=== PATIENT | male | born 1940 | race Caucasian/White ===

== ENCOUNTER 2017-11-28 15:04 | Emergency (ER) | payer OTHER ==
[~2017-11-28] VITALS: Ht 180.3 cm; Wt 66.7 kg
[2017-11-28 15:04] VITALS: BP_SYST 119
[2017-11-28] MEDS ORDERED: NACL 0.9% 1,000 ML IV ONE (16:24)
[2017-11-28] MEDS ORDERED: LORazepam 2 MG/ML VIAL (FOR ER USE) IVP ONE (16:30)
[2017-11-28] MEDS ORDERED: POLYETHYLENE GLYCOL 3350, 17 GM/ POWD.PACK PO ONE (16:30)
[2017-11-28] MEDS ORDERED: METOCLOPRAMIDE HCL 10 MG/2 ML VIAL IVP ONE (16:30)
[2017-11-28] MEDS ORDERED: BISACODYL 10 MG/SUPPOSITORY RC ONE (16:30)
[2017-11-28] MEDS ORDERED: BISACODYL 5 MG TABLET.DR (DULCOLAX) PO ONE (16:30)
[2017-11-28 16:59] LABS: BASOPHILS # (AUTO) 0.1 K/uL (0.0-0.2); BASOPHILS % (AUTO) 1.5 % (0.0-2.0); EOSINOPHILS # (AUTO) 0.1 K/uL (0.0-0.4); EOSINOPHILS % (AUTO) 0.6 % (0.0-4.0); HEMATOCRIT 38.2 % (36-54); HEMOGLOBIN 12.9 g/dL (14.0-18.0); LYMPHOCYTES # (AUTO) 1.4 K/uL (1.0-5.5); LYMPHOCYTES % (AUTO) 16.2 % (20.5-51.5); MEAN CORPUSCULAR HEMOGLOBIN 31 pg (27-31); MEAN CORPUSCULAR HGB CONC 34 % (32-36); MEAN CORPUSCULAR VOLUME 92 fL (79.0-98.0); MONOCYTES # (AUTO) 0.7 K/uL (0.0-1.0); MONOCYTES % (AUTO) 8.7 % (1.7-9.3); NEUTROPHILS # (AUTO) 6.3 K/uL (1.8-7.7); PLATELET COUNT (AUTO) 410 K/uL (130-430); RED BLOOD CELL COUNT(AUTO) 4.16 MIL/uL (4.2-6.2); RED CELL DISTRIBUTION WIDTH 12.6 % (9.0-15.0); WHITE BLOOD COUNT (AUTO) 8.6 K/uL (4.8-10.8)
[2017-11-28 17:10] LABS: ANION GAP 10 (5-15); CALCIUM 9.2 mg/dL (8.4-11.0); CHLORIDE 95 mmol/L (98-107); CREATININE 0.77 mg/dL (0.55-1.30); GLUCOSE 121 mg/dL (70-99); POTASSIUM 3.4 mmol/L (3.5-5.1); SODIUM SERUM 135 mmol/L (136-145); UREA NITROGEN, BLOOD 21 mg/dL (8-21)
[2017-11-28 17:14] LABS: ALANINE AMINOTRANSFERASE 96 U/L (12-78); ALBUMIN 3.1 g/dL (3.4-4.8); ASPARTATE AMINOTRANSFERASE 63 U/L (10-37); LIPASE 135 U/L (73-393); TOTAL BILIRUBIN 0.5 mg/dL (0.0-1.0)
[2017-11-28 18:50] VITALS: BP_SYST 118
== END 2017-11-28 18:49 | disposition home or self-care (01) ==
LOC: SED 15:04
DX: K59.00 Constipation, unspecified (principal); E78.00 Pure hypercholesterolemia, unspecified; I10 Essential (primary) hypertension; Z85.07 Personal history of malignant neoplasm of pancreas
CPT/HCPCS: 36415; 74021; 80053; 83690; 85025; 96374; 96375; 99285; J2060; J2765; J7030